=== PATIENT | male | born 1955 | race American Indian/Alaskan Native ===

== ENCOUNTER 2016-09-05 20:47 | Emergency (ER) | payer MEDICARE, OTHER ==
[2016-09-05 22:50] LABS: Basophils % (Auto) 1.2 % (0.0-1.8); Eosinophils % (Auto) 1.1 % (0.0-4.3); Hematocrit 40.8 % (35.5-45.6); Hemoglobin 13.1 gm/dl (11.8-15.2); Mean Corpuscular HGB Conc 32 % (32-34); Mean Corpuscular Hemoglobin 26 pg (28-32); Mean Corpuscular Volume 81 fl (84-94); Platelet Count 179 K/mm3 (140-440); Red Blood Count 5.05 M/mm3 (3.65-5.03); Red Cell Distribution Width 14.7 % (13.2-15.2); White Blood Count 7.9 K/mm3 (4.5-11.0)
[2016-09-05 23:02] LABS: Anion Gap 19 mmol/L; BUN/Creatinine Ratio 19.09; Blood Urea Nitrogen 21 mg/dL (9-20); Calcium 9.1 mg/dL (8.4-10.2); Carbon Dioxide 25 mmol/L (22-30); Chloride 97.1 mmol/L (98-107); Glucose 112 mg/dL (75-100); INR 1.33 (0.87-1.13); Potassium 3.6 mmol/L (3.6-5.0); Sodium 137 mmol/L (137-145)
[2016-09-05 23:03] LABS: Partial Thromboplastin Time 38.1 Sec. (24.2-36.6)
[2016-09-06 04:57] VITALS: BP 149/92
--- NOTE | 2016-09-06 06:59 | Emergency Department Report ---
ED Shortness of Breath HPI - General Chief Complaint: Dyspnea/Respdistress Stated Complaint: PRODUCTIVE COUGH/FLU SX/EDDIE Time Seen by Provider: 09/06/16 06:43 Source: patient Mode of arrival: Ambulatory Limitations: No Limitations - History of Present Illness MD Complaint: shortness of breath, cough -: Gradual, days(s) (1) Radiation: other Severity: mild Pain Scale: 2 Quality: dull Consistency: intermittent Improves With: nothing Worsens With: nothing Known History Of: other (bronchitis) Context: recent illness Associated Symptoms: cough, sputum production Treatments Prior to Arrival: none - Related Data Home Oxygen Therapy: No Home Medications Medication Instructions Recorded Confirmed Last Taken Carvedilol [Coreg] 25 mg PO BID 10/12/12 01/12/14 01/11/14 Esomeprazole Magnesium [NexIUM] 40 mg PO QDAY 10/12/12 01/12/14 01/11/14 Furosemide [Lasix TAB] 20 mg PO BID 10/12/12 01/12/14 01/11/14 Losartan [Cozaar] 100 mg PO QDAY 10/12/12 01/12/14 01/11/14 Simvastatin 20 mg PO QHS 10/12/12 01/12/14 01/11/14 Warfarin [Coumadin] 5 mg PO QDAY 10/12/12 01/12/14 01/11/14 amLODIPine [Norvasc] 10 mg PO DAILY 10/12/12 01/12/14 01/11/14 Previous Rx's Medication Instructions Recorded Last Taken Type Aspirin [Aspirin BABY CHEW TAB] 81 mg PO QDAY #30 tab.chew 10/15/12 01/11/14 Rx Isosorbide Mononitrate [Imdur] 30 mg PO QDAY #30 tab.er.24h 10/15/12 01/11/14 Rx Albuterol Sulfate [Proventil HFA] 1 - 2 puff IH Q4H PRN #1 hfa.aer.ad 01/12/14 Unknown Rx Aspirin [Aspirin BABY CHEW TAB] 81 mg PO ONCE #100 tab.chew 01/12/14 Unknown Rx Azithromycin [Zithromax Z-SUGEY] 250 mg PO DAILY #6 tablet 01/12/14 Unknown Rx predniSONE [Deltasone] 20 mg PO BID #8 tablet 01/12/14 Unknown Rx Azithromycin [Zithromax TAB] 500 mg PO QDAY #3 tablet 12/27/14 Unknown Rx Benzonatate [Tessalon Perles] 100 mg PO Q8HR #20 capsule 12/27/14 Unknown Rx Azithromycin [Zithromax Z-SUGEY] 250 mg PO DAILY #6 tab 02/28/15 Unknown Rx Benzonatate [Tessalon Perles] 100 mg PO Q8HR #15 capsule 02/28/15 Unknown Rx Amoxicillin [Trimox CAP] 500 mg PO Q8H #20 capsule 07/16/15 Unknown Rx Clindamycin [Clindamycin CAP] 300 mg PO Q8H #20 cap 07/19/15 Unknown Rx Azithromycin [Zithromax Z-SUGEY] 250 mg PO DAILY #6 tablet 09/06/16 Unknown Rx Benzonatate [Tessalon Perles] 100 mg PO Q8HR PRN #20 capsule 09/06/16 Unknown Rx Allergies Allergy/AdvReac Type Severity Reaction Status Date / Time shellfish derived Allergy Itching Verified 01/12/14 11:16 tomato [Tomato] Allergy Itching Verified 01/12/14 11:16 acetaminophen AdvReac Unknown Verified 01/12/14 11:16 [From Tylenol Cold Head Congestion] dextromethorphan HBr AdvReac Unknown Verified 01/12/14 11:16 [From Tylenol Cold Head Congestion] guaifenesin AdvReac Unknown Verified 01/12/14 11:16 [From Tylenol Cold Head Congestion] phenylephrine HCl AdvReac Unknown Verified 01/12/14 11:16 [From Tylenol Cold Head Congestion] ED Review of Systems ROS: Stated complaint: PRODUCTIVE COUGH/FLU SX/EDDIE Other details as noted in HPI Comment: All other systems reviewed and negative Respiratory: cough Cardiovascular: chest pain ED Past Medical Hx - Past Medical History Previous Medical History?: Yes Hx Hypertension: Yes Hx Heart Attack/AMI: Yes Hx Congestive Heart Failure: Yes Hx Diabetes: No Hx Asthma: No Hx COPD: No Hx HIV: No Additional medical history: ATRIAL Fib, takes Xarelto - Surgical History Hx Appendectomy: Yes - Social History Smoking Status: Former Smoker - Medications Home Medications: Home Medications Medication Instructions Recorded Confirmed Last Taken Type Carvedilol [Coreg] 25 mg PO BID 10/12/12 01/12/14 01/11/14 History Esomeprazole Magnesium [NexIUM] 40 mg PO QDAY 10/12/12 01/12/14 01/11/14 History Furosemide [Lasix TAB] 20 mg PO BID 10/12/12 01/12/14 01/11/14 History Losartan [Cozaar] 100 mg PO QDAY 10/12/12 01/12/14 01/11/14 History Simvastatin 20 mg PO QHS 10/12/12 01/12/14 01/11/14 History Warfarin [Coumadin] 5 mg PO QDAY 10/12/12 01/12/14 01/11/14 History amLODIPine [Norvasc] 10 mg PO DAILY 10/12/12 01/12/14 01/11/14 History Aspirin [Aspirin BABY CHEW TAB] 81 mg PO QDAY #30 tab.chew 10/15/12 01/12/1406/20 Rx Isosorbide Mononitrate [Imdur] 30 mg PO QDAY #30 tab.er.24h 10/15/12 01/12/14 Rx Albuterol Sulfate [Proventil HFA] 1 - 2 puff IH Q4H PRN #1 hfa.aer.ad 01/12/14 01/12/14 Unknown Rx Aspirin [Aspirin BABY CHEW TAB] 81 mg PO ONCE #100 tab.chew 01/12/14 01/12/14 Unknown Rx Azithromycin [Zithromax Z-SUGEY] 250 mg PO DAILY #6 tablet 01/12/14 Unknown Rx predniSONE [Deltasone] 20 mg PO BID #8 tablet 01/12/14 01/12/14 Unknown Rx Azithromycin [Zithromax TAB] 500 mg PO QDAY #3 tablet 12/27/14 Unknown Rx Benzonatate [Tessalon Perles] 100 mg PO Q8HR #20 capsule 12/27/14 Unknown Rx Azithromycin [Zithromax Z-SUGEY] 250 mg PO DAILY #6 tab 02/28/15 Unknown Rx Benzonatate [Tessalon Perles] 100 mg PO Q8HR #15 capsule 02/28/15 Unknown Rx Amoxicillin [Trimox CAP] 500 mg PO Q8H #20 capsule 07/16/15 Unknown Rx Clindamycin [Clindamycin CAP] 300 mg PO Q8H #20 cap 07/19/15 Unknown Rx Azithromycin [Zithromax Z-SUGEY] 250 mg PO DAILY #6 tablet 09/06/16 Unknown Rx Benzonatate [Tessalon Perles] 100 mg PO Q8HR PRN #20 capsule 09/06/16 Unknown Rx ED Physical Exam - General Limitations: No Limitations General appearance: alert, in no apparent distress - Head Head exam: Present: atraumatic - Eye Eye exam: Present: normal appearance, PERRL, EOMI - ENT ENT exam: Present: normal exam - Neck Neck exam: Present: normal inspection - Respiratory Respiratory exam: Present: normal lung sounds bilaterally - Cardiovascular Cardiovascular Exam: Present: regular rate, normal rhythm - GI/Abdominal GI/Abdominal exam: Present: soft - Extremities Exam Extremities exam: Present: normal inspection - Back Exam Back exam: Present: normal inspection - Neurological Exam Neurological exam: Present: alert, altered, oriented X3 - Skin Skin exam: Present: warm ED Course Vital Signs 09/05/16 09/06/16 09/06/16 21:39 04:41 04:46 Temperature 98.2 F Pulse Rate 73 39 L Respiratory 18 18 Rate Blood Pressure 152/96 149/92 O2 Sat by Pulse 98 99 99 Oximetry 09/06/16 09/06/16 09/06/16 04:48 04:50 04:52 Temperature Pulse Rate 39 L 42 L 53 L Respiratory 17 15 21 Rate Blood Pressure 149/92 149/92 149/92 O2 Sat by Pulse 99 99 99 Oximetry - Reevaluation(s) Reevaluation #1: 09/06/16 06:56 Feels better and wants to go home ED Medical Decision Making - Lab Data Result diagrams: 09/05/16 22:13 09/05/16 22:13 Critical care attestation.: If time is entered above; I have spent that time in minutes in the direct care of this critically ill patient, excluding procedure time. ED Disposition Clinical Impression: Acute bronchitis Disposition: DC-01 TO HOME OR SELFCARE Is pt being admited?: No Does the pt Need Aspirin: No Condition: Stable Instructions: Acute Bronchitis (ED) Prescriptions: Azithromycin [Zithromax Z-SUGEY] 250 mg PO DAILY #6 tablet Benzonatate [Tessalon Perles] 100 mg PO Q8HR PRN #20 capsule PRN Reason: Cough Referrals: PRIMARY CARE, [Primary Care Provider] - 3-5 Days
--- NOTE | 2016-09-06 07:36 | XRay Report ---
CHEST 2 VIEWS INDICATION: Productive cough for 4 days. COMPARISON: 07/19/2015 FINDINGS: PA and lateral chest radiographs again demonstrate mild cardiomegaly and increased bronchovascular markings centrally. Clear remainder lungs without pleural effusions or CHF. Mild degenerative spurring. CONCLUSION: Stable cardiomegaly, as described. Thank you for the opportunity to participate in this patient's care.
== END 2016-09-06 07:00 | disposition home or self-care (01) ==
LOC: ED 20:47
DX: J20.9 Acute bronchitis, unspecified (principal); I10 Essential (primary) hypertension; I25.2 Old myocardial infarction; I50.9 Heart failure, unspecified; Z87.891 Personal history of nicotine dependence; Z79.82 Long term (current) use of aspirin; Z91.013 Allergy to seafood; Z88.8 Allergy status to other drugs, medicaments and biological substances
CPT/HCPCS: 36415; 71020; 80048; 84484; 85025; 85610; 85730; 87400; 93005; 93010

== ENCOUNTER 2018-05-03 19:31 | Inpatient (IN) | payer MEDICARE ==
--- NOTE | 2018-05-03 20:19 | Emergency Department Report ---
Blank Doc - Documentation Documentation: This is a 62-year-old male that presents with SOB and chest pain. This initial assessment/diagnostic orders/clinical plan/treatment(s) is/are subject to change based on patient's health status, clinical progression and re- assessment by fellow clinical providers in the ED. Further treatment and workup at subsequent clinical providers discretion. Patient/guardians urged not to elope from the ED as their condition may be serious if not clinically assessed and managed. Initial orders include: 1- Patient sent to MAIN ED for further evaluation and treatment 2- labs 3- EKG 4- CXR
[2018-05-03 21:24] LABS: Basophils % (Auto) 0.3 % (0.0-1.8); Eosinophils # (Auto) 0.1 K/mm3 (0.0-0.4); Eosinophils % (Auto) 0.7 % (0.0-4.3); Hematocrit 42.2 % (35.5-45.6); Hemoglobin 13.8 gm/dl (11.8-15.2); Lymphocytes # (Auto) 2.3 K/mm3 (1.2-5.4); Lymphocytes % (Auto) 28.2 % (13.4-35.0); Mean Corpuscular HGB Conc 33 % (32-34); Mean Corpuscular Volume 85 fl (84-94); Monocytes # (Auto) 1.2 K/mm3 (0.0-0.8); Monocytes % (Auto) 15.2 % (0.0-7.3); Platelet Count 184 K/mm3 (140-440); Red Blood Count 4.99 M/mm3 (3.65-5.03); Red Cell Distribution Width 13.6 % (13.2-15.2)
[2018-05-03 21:32] LABS: INR 2.1 (0.87-1.13)
[2018-05-03 21:33] LABS: Partial Thromboplastin Time 38.3 Sec. (24.2-36.6)
[2018-05-03 21:49] LABS: Creatine Kinase MB 4.5 ng/mL (0.0-4.0)
[2018-05-03 21:50] LABS: Albumin 4.1 g/dL (3.9-5); Calcium 9.2 mg/dL (8.4-10.2)
--- NOTE | 2018-05-03 22:10 | XRay Report ---
PROCEDURE: XR CHEST ROUTINE 2V TECHNIQUE: PA and lateral chest radiographs were obtained. HISTORY: Dyspnea COMPARISONS: None. FINDINGS: Heart: Normal. Mediastinum/Vessels: Normal. Lungs/Pleural space: Normal. Bony thorax: No acute osseous abnormality. IMPRESSION: Normal examination. This document is electronically signed by Dk Browning MD., May 03 2018 10:08:47 PM ET
--- NOTE | 2018-05-04 00:01 | Emergency Department Report ---
ED General Adult HPI - General Chief complaint: Dyspnea/Respdistress Stated complaint: EDDIE Time Seen by Provider: 05/03/18 20:18 Source: patient, RN notes reviewed, old records reviewed Mode of arrival: Ambulatory Limitations: No Limitations - History of Present Illness Initial comments: This is a 62-year-old gentleman. Primary care Dr.: DR HAWKINS Cardiology: Emmanuel Past medical history: Atrial fibrillation, congestive heart failure, hypertension, reported history of myocardial infarction, abnormal stress test in 2012, at that time, cardiac catheterization was recommended, and the patient refused, declined. The patient presents to the emergency room today with complaints of inability to swallow for a few days, central chest pain which does not radiate to the back, arms or neck, no vomiting, no diaphoresis and shortness of breath. Patient st ates his shortness of breath "reminds me of my last heart attack." His chest pain is intermittent, and is occasionally associated with oral fluid intake. Patient reports difficulty with swallowing solids and liquids. He denies DVT, pulmonary embolus risk factors, and he endorses compliance with his systemic anticoagulation, XARELTO The chest pain does not radiate anywhere, it is intermittent, and is described as pressure, achy in nature, and the patient does not really know if it has any exacerbating or relieving factors. Shortness of breath is intermittent, painless, does not appear to have exacerbating or relieving factors. -: Gradual Location: chest Severity scale (0 -10): 7 Consistency: intermittent Improves with: none Worsens with: none - Related Data Home Medications Medication Instructions Recorded Confirmed Last Taken Carvedilol [Coreg] 25 mg PO BID 10/12/12 01/12/14 01/11/14 Esomeprazole Magnesium [NexIUM] 40 mg PO QDAY 10/12/12 01/12/14 01/11/14 Furosemide [Lasix TAB] 20 mg PO BID 10/12/12 01/12/14 01/11/14 Losartan [Cozaar] 100 mg PO QDAY 10/12/12 01/12/14 01/11/14 Simvastatin 20 mg PO QHS 10/12/12 01/12/14 01/11/14 Warfarin [Coumadin] 5 mg PO QDAY 10/12/12 01/12/14 01/11/14 amLODIPine [Norvasc] 10 mg PO DAILY 10/12/12 01/12/14 01/11/14 Previous Rx's Medication Instructions Recorded Last Taken Type Aspirin [Aspirin BABY CHEW TAB] 81 mg PO QDAY #30 tab.chew 10/15/12 01/11/14 Rx Isosorbide Mononitrate [Imdur] 30 mg PO QDAY #30 tab.er.24h 10/15/12 01/11/14 Rx Albuterol Sulfate [Proventil HFA] 1 - 2 puff IH Q4H PRN #1 hfa.aer.ad 01/12/14 Unknown Rx Aspirin [Aspirin BABY CHEW TAB] 81 mg PO ONCE #100 tab.chew 01/12/14 Unknown Rx Azithromycin [Zithromax Z-SUGEY] 250 mg PO DAILY #6 tablet 01/12/14 Unknown Rx predniSONE [Deltasone] 20 mg PO BID #8 tablet 01/12/14 Unknown Rx Azithromycin [Zithromax TAB] 500 mg PO QDAY #3 tablet 12/27/14 Unknown Rx Benzonatate [Tessalon Perles] 100 mg PO Q8HR #20 capsule 12/27/14 Unknown Rx Azithromycin [Zithromax Z-SUGEY] 250 mg PO DAILY #6 tab 02/28/15 Unknown Rx Benzonatate [Tessalon Perles] 100 mg PO Q8HR #15 capsule 02/28/15 Unknown Rx Amoxicillin [Trimox CAP] 500 mg PO Q8H #20 capsule 07/16/15 Unknown Rx Clindamycin [Clindamycin CAP] 300 mg PO Q8H #20 cap 07/19/15 Unknown Rx Azithromycin [Zithromax Z-SUGEY] 250 mg PO DAILY #6 tablet 09/06/16 Unknown Rx Benzonatate [Tessalon Perles] 100 mg PO Q8HR PRN #20 capsule 09/06/16 Unknown Rx Allergies Allergy/AdvReac Type Severity Reaction Status Date / Time shellfish derived Allergy Itching Verified 01/12/14 11:16 tomato [Tomato] Allergy Itching Verified 01/12/14 11:16 acetaminophen AdvReac Unknown Verified 01/12/14 11:16 [From Tylenol Cold Head Congestion] dextromethorphan HBr AdvReac Unknown Verified 01/12/14 11:16 [From Tylenol Cold Head Congestion] guaifenesin AdvReac Unknown Verified 01/12/14 11:16 [From Tylenol Cold Head Congestion] phenylephrine HCl AdvReac Unknown Verified 01/12/14 11:16 [From Tylenol Cold Head Congestion] ED Review of Systems ROS: Stated complaint: EDDIE Other details as noted in HPI Constitutional: malaise. denies: fever Eyes: denies: vision change ENT: denies: epistaxis Respiratory: shortness of breath Cardiovascular: chest pain Gastrointestinal: other (patient endorses dysphagia). denies: abdominal pain, nausea, vomiting Genitourinary: denies: dysuria Musculoskeletal: other (chronic lower extremity swelling) Skin: lesions (chronic lower extremity hyperpigmentation) Neurological: weakness Psychiatric: anxiety ED Past Medical Hx - Past Medical History Previous Medical History?: Yes Hx Hypertension: Yes Hx Heart Attack/AMI: Yes Hx Congestive Heart Failure: Yes Hx Diabetes: No Hx Asthma: No Hx COPD: No Hx HIV: No Additional medical history: ATRIAL Fib, takes Xarelto - Surgical History Past Surgical History?: Yes Hx Appendectomy: Yes - Social History Smoking Status: Never Smoker Substance Use Type: None - Medications Home Medications: Home Medications Medication Instructions Recorded Confirmed Last Taken Type Carvedilol [Coreg] 25 mg PO BID 10/12/12 01/12/14 01/11/14 History Esomeprazole Magnesium [NexIUM] 40 mg PO QDAY 10/12/12 01/12/14 01/11/14 History Furosemide [Lasix TAB] 20 mg PO BID 10/12/12 01/12/14 01/11/14 History Losartan [Cozaar] 100 mg PO QDAY 10/12/12 01/12/14 01/11/14 History Simvastatin 20 mg PO QHS 10/12/12 01/12/14 01/11/14 History Warfarin [Coumadin] 5 mg PO QDAY 10/12/12 01/12/14 01/11/14 History amLODIPine [Norvasc] 10 mg PO DAILY 10/12/12 01/12/14 01/11/14 History Aspirin [Aspirin BABY CHEW TAB] 81 mg PO QDAY #30 tab.chew 10/15/12 01/12/14 01/11/14 Rx Isosorbide Mononitrate [Imdur] 30 mg PO QDAY #30 tab.er.24h 10/15/12 01/12/14 01/11/14 Rx Albuterol Sulfate [Proventil HFA] 1 - 2 puff IH Q4H PRN #1 hfa.aer.ad 01/12/14 01/12/14 Unknown Rx Aspirin [Aspirin BABY CHEW TAB] 81 mg PO ONCE #100 tab.chew 01/12/14 01/12/14 Unknown Rx Azithromycin [Zithromax Z-SUGEY] 250 mg PO DAILY #6 tablet 01/12/14 Unknown Rx predniSONE [Deltasone] 20 mg PO BID #8 tablet 01/12/14 01/12/14 Unknown Rx Azithromycin [Zithromax TAB] 500 mg PO QDAY #3 tablet 12/27/14 Unknown Rx Benzonatate [Tessalon Perles] 100 mg PO Q8HR #20 capsule 12/27/14 Unknown Rx Azithromycin [Zithromax Z-SUGEY] 250 mg PO DAILY #6 tab 02/28/15 Unknown Rx Benzonatate [Tessalon Perles] 100 mg PO Q8HR #15 capsule 02/28/15 Unknown Rx Amoxicillin [Trimox CAP] 500 mg PO Q8H #20 capsule 07/16/15 Unknown Rx Clindamycin [Clindamycin CAP] 300 mg PO Q8H #20 cap 07/19/15 Unknown Rx Azithromycin [Zithromax Z-SUGEY] 250 mg PO DAILY #6 tablet 09/06/16 Unknown Rx Benzonatate [Tessalon Perles] 100 mg PO Q8HR PRN #20 capsule 09/06/16 Unknown Rx ED Physical Exam - General Limitations: No Limitations General appearance: alert, in no apparent distress - Head Head exam: Present: atraumatic, normocephalic - Eye Eye exam: Present: normal appearance, EOMI. Absent: nystagmus - ENT ENT exam: Present: normal exam, normal orophraynx, mucous membranes moist - Neck Neck exam: Present: normal inspection, full ROM. Absent: tenderness, meningismus - Respiratory Respiratory exam: Present: normal lung sounds bilaterally. Absent: respiratory distress - Cardiovascular Cardiovascular Exam: Present: bradycardia, irregular rhythm, normal heart sounds. Absent: systolic murmur, diastolic murmur, rubs, gallop - GI/Abdominal GI/Abdominal exam: Present: soft. Absent: distended, tenderness, guarding, rebound, rigid, pulsatile mass - Rectal Rectal exam: Present: deferred - Extremities Exam Extremities exam: Present: normal inspection, full ROM, pedal edema, other (2+ pulses noted in the bilateral upper, lower extremities. Compartments soft. No long bony tenderness. The pelvis is stable.). Absent: calf tenderness - Back Exam Back exam: Present: normal inspection, full ROM. Absent: tenderness, CVA tenderness (R), paraspinal tenderness, vertebral tenderness - Neurological Exam Neurological exam: Present: alert, oriented X3, normal gait, other (Extraocular movements intact. Tongue midline. No facial droop. Facial sensation intact to light touch in the V1, V2, V3 distribution bilaterally. 5 and 5 strength in 4 extremities.. Sensation is intact to light touch in 4 extremities.). Absent: motor sensory deficit - Psychiatric Psychiatric exam: Present: anxious - Skin Skin exam: Present: warm, dry, intact, normal color. Absent: rash ED Course Vital Signs 05/03/18 20:18 Temperature 97.7 F Pulse Rate 46 L Respiratory 20 Rate Blood Pressure 116/79 O2 Sat by Pulse 99 Oximetry ED Medical Decision Making - Lab Data Result diagrams: 05/03/18 20:36 05/03/18 20:36 Vital Signs 05/03/18 20:18 Temperature 97.7 F Pulse Rate 46 L Respiratory 20 Rate Blood Pressure 116/79 O2 Sat by Pulse 99 Oximetry Lab Results 05/03/18 05/03/18 05/03/18 Range/Units 20:36 20:36 20:36 WBC 8.2 (4.5-11.0) K/mm3 RBC 4.99 (3.65-5.03) M/mm3 Hgb 13.8 (11.8-15.2) gm/dl Hct 42.2 (35.5-45.6) % MCV 85 (84-94) fl MCH 28 (28-32) pg MCHC 33 (32-34) % RDW 13.6 (13.2-15.2) % Plt Count 184 (140-440) K/mm3 Lymph % (Auto) 28.2 (13.4-35.0) % Anderson % (Auto) 15.2 H (0.0-7.3) % Eos % (Auto) 0.7 (0.0-4.3) % Baso % (Auto) 0.3 (0.0-1.8) % Lymph # 2.3 (1.2-5.4) K/mm3 Anderson # 1.2 H (0.0-0.8) K/mm3 Eos # 0.1 (0.0-0.4) K/mm3 Baso # 0.0 (0.0-0.1) K/mm3 Seg Neutrophils % 55.6 (40.0-70.0) % Seg Neutrophils # 4.6 (1.8-7.7) K/mm3 PT 25.0 H (12.2-14.9) Sec. INR 2.10 H (0.87-1.13) APTT 38.3 H (24.2-36.6) Sec. Sodium 132 L (137-145) mmol/L Potassium 3.3 L (3.6-5.0) mmol/L Chloride 91.2 L (98-107) mmol/L Carbon Dioxide 25 (22-30) mmol/L Anion Gap 19 mmol/L BUN 24 H (9-20) mg/dL Creatinine 1.7 H (0.8-1.5) mg/dL Estimated GFR 50 ml/min BUN/Creatinine Ratio 14 % Glucose 123 H (75-100) mg/dL Calcium 9.2 (8.4-10.2) mg/dL Total Bilirubin 0.90 (0.1-1.2) mg/dL AST 23 (5-40) units/L ALT 23 (7-56) units/L Alkaline Phosphatase 67 (35-129) units/L Total Creatine Kinase 216 H (55-170) units/L CK-MB (CK-2) 4.5 H (0.0-4.0) ng/mL CK-MB (CK-2) Rel Index 2.0 (0-4) Troponin T 0.015 (0.00-0.029) ng/mL Total Protein 7.8 (6.3-8.2) g/dL Albumin 4.1 (3.9-5) g/dL Albumin/Globulin Ratio 1.1 % - EKG Data Interpretation: unchanged when compared t 05/04/18 00:48 EKG shows atrial flutter, 54 bpm, variable rate, premature ventricular contractions, left axis deviation, abnormal EKG, not having chest pain, not consistent with ST elevation myocardial infarction. - Radiology Data Radiology results: report reviewed, image reviewed X-ray the chest is negative for acute disease. - Medical Decision Making Differential diagnosis, including but not limited to: Dysphagia, GERD, gastritis, hiatal hernia, acute coronary syndrome Assessment and plan: 62-year-old gentleman with 2 complaints. Complaint #1; dysphagia. Patient able to tolerate liquids, although with difficulty. Based off of the history and physical, patient most likely has new- onset dysphagia, either due to esophageal dysmotility, stricture, or other etiology. He is able to tolerate liquid feeds. However, because of his second complaints, complaint #2, chest pain, in which he endorses shortness of breath or reminds of his previous heart attack, he will be admitted to the medical service for cardiac risk stratification, as I find this patient to be moderate risk by the heart score. The patient had an abnormal stress test at this hospital a few years ago, and at that time, I refused cardiac catheterization. The patient cannot recall if he has been catheterized or stressed within the past year. I have recommended admission to the patient, and he is amenable to this plan of care. No pulmonary embolus or DVT risk factors, low risk by well's criteria, INR greater than 2, and he endorses compliance with systemic anticoagulation. Dr. Nava of the hospital service will admit the patient to the medical service for cardiac risk stratification. Discussed with gastroenterology, Dr. Thibodeaux, who agrees to follow in consultation for dysphagia. Critical care attestation.: If time is entered above; I have spent that time in minutes in the direct care of this critically ill patient, excluding procedure time. ED Disposition Clinical Impression: Dysphagia, Chest pain, Dyspnea Disposition: OP ADMIT IP TO THIS HOSP Is pt being admited?: Yes Does the pt Need Aspirin: Yes Condition: Stable Instructions: Chest Pain (ED) Referrals: PRINCE HENDERSON MD [Primary Care Provider] - 3-5 Days
[2018-05-04] MEDS ORDERED: BABY ASPIRIN PO ONE (00:51)
--- NOTE | 2018-05-04 01:06 | History and Physical Report ---
History of Present Illness Date of examination: 05/04/18 History of present illness: 62 -year-old man with a history of hypertension, CHF, A. fib comes to the emergency room with complaints of chest pain. Pain is in the epigastric area which he describes as someone hitting him in the chest, intermittent between 10 minutes, intensity 5/10, cannot identify exacerbating factors. Admits shortness of breath. No nausea vomiting, diaphoresis or palpitation. He had a stress test one month ago at [facility], he was told that he needs to follow-up with cardiology at [facility] for stent placement, he has not done so as yet. Also complaining of dysphagia to solid and liquid Review of systems Constitutional: no weight loss, chills, fever Ears, eyes, nose, mouth and throat: no nasal congestion, no nasal discharge, no sinus pressure, no vision change, no red eye. Neck: No neck pain or rigidity. Cardiovascular: no palpitations, +chest pain Respiratory: no cough, +shortness of breath Gastrointestinal: no hematochezia, abdominal pain Genitourinary : no frequency , no hematuria Musculoskeletal: no joint swelling or muscle ache Integumentary: no rash, no pruritis Neurological: no parathesias, no focal weakness Endocrine: no cold or heat intolerance, no polyuria or polydipsia Hematologic/Lymphatic: no easy bruising, no easy bleeding, no gland swelling Allergic/Immunologic: no urticaria, no angioedema. PAST MEDICAL HISTORY:hypertension, CHF, A. fib PAST SURGICAL HISTORY: Appendectomy SOCIAL HISTORY: Denies alcohol, drugs, tobacco FAMILY HISTORY: Hypertension Medications and Allergies Allergies Allergy/AdvReac Type Severity Reaction Status Date / Time shellfish derived Allergy Itching Verified 01/12/14 11:16 tomato [Tomato] Allergy Itching Verified 01/12/14 11:16 acetaminophen AdvReac Unknown Verified 01/12/14 11:16 [From Tylenol Cold Head Congestion] dextromethorphan HBr AdvReac Unknown Verified 01/12/14 11:16 [From Tylenol Cold Head Congestion] guaifenesin AdvReac Unknown Verified 01/12/14 11:16 [From Tylenol Cold Head Congestion] phenylephrine HCl AdvReac Unknown Verified 01/12/14 11:16 [From Tylenol Cold Head Congestion] Home Medications Medication Instructions Recorded Confirmed Last Taken Type Carvedilol [Coreg] 25 mg PO Q12HRT 09/05/13 03/28/19 03/26/19 History Esomeprazole Magnesium [NexIUM] 40 mg PO QDAY 10/12/12 05/04/18 05/04/18 05:25 History Furosemide [Lasix TAB] 80 mg PO DAILY 10/12/12 05/04/18 05/02/18 History Losartan [Cozaar] 100 mg PO QDAY 10/12/12 01/12/14 01/11/14 History Simvastatin 20 mg PO QHS 10/12/12 01/12/14 01/11/14 History Warfarin [Coumadin] 5 mg PO QDAY 10/12/12 01/12/14 01/11/14 History amLODIPine [Norvasc] 10 mg PO DAILY 10/12/12 01/12/14 01/11/14 History Aspirin [Aspirin BABY CHEW TAB] 81 mg PO QDAY #30 tab.chew 10/15/12 01/12/14 1 03/14/13 Rx Isosorbide Mononitrate [Imdur] 30 mg PO QDAY #30 tab.er.24h 10/15/12 01/12/14 01/11/14 Rx Albuterol Sulfate [Proventil HFA] 1 - 2 puff IH Q4H PRN #1 hfa.aer.ad 01/12/14 01/12/14 Unknown Rx Aspirin [Aspirin BABY CHEW TAB] 81 mg PO ONCE #100 tab.chew 01/12/14 01/12/14 Unknown Rx Azithromycin [Zithromax Z-SUGEY] 250 mg PO DAILY #6 tablet 01/12/14 Unknown Rx predniSONE [Deltasone] 20 mg PO BID #8 tablet 01/12/14 01/12/14 Unknown Rx Azithromycin [Zithromax TAB] 500 mg PO QDAY #3 tablet 12/27/14 Unknown Rx Benzonatate [Tessalon Perles] 100 mg PO Q8HR #20 capsule 12/27/14 Unknown Rx Azithromycin [Zithromax Z-SUGEY] 250 mg PO DAILY #6 tab 02/28/15 Unknown Rx Benzonatate [Tessalon Perles] 100 mg PO Q8HR #15 capsule 02/28/15 Unknown Rx Amoxicillin [Trimox CAP] 500 mg PO Q8H #20 capsule 07/16/15 Unknown Rx Clindamycin [Clindamycin CAP] 300 mg PO Q8H #20 cap 07/19/15 Unknown Rx Azithromycin [Zithromax Z-SUGEY] 250 mg PO DAILY #6 tablet 09/06/16 Unknown Rx Benzonatate [Tessalon Perles] 100 mg PO Q8HR PRN #20 capsule 09/06/16 Unknown Rx VENTOLIN Inhaler(NF) 90 mcg PRN 05/04/18 Unknown History Xarelto 20 mg DAILY 05/04/18 05/04/18 05/02/18 History metFORMIN 1,000 mg DAILY 05/04/18 05/04/18 05/04/18 05:33 History Exam - Physical Exam Narrative exam: General Apperance: The patient lying in bed, breathing comfortable HEENT: Normocephalic, atraumatic. Pupils equally round and reactive to light, EOMI, no sclericterus or JVD or thyromegaly or nodule. , no carotid bruit, mucous membranes moist, no exudate or erythema Heart: S1-S2, regular is rhythm Lungs: Clear to auscultation bilaterally, breathing comfortable Abdomen: Positive bowel sounds, soft, nontender, nondistended, no organomegaly Extremities: No edema cyanosis clubbing Skin: no rash, nodule, warm and dry Neuro: cranial nerves 2-12 intact, speech is fluent, motor/sensory intact - Constitutional Vitals: Temp Pulse Resp BP Pulse Ox 97.7 F 46 L 20 116/79 99 05/03/18 20:18 05/03/18 20:18 05/03/18 20:18 05/03/18 20:18 05/03/18 20:18 Results - Labs CBC & Chem 7: 05/04/18 05:16 05/04/18 05:16 Labs: Abnormal lab results 05/03/18 05/03/18 05/03/18 Range/Units 20:36 20:36 20:36 [place] % (Auto) 15.2 H (0.0-7.3) % [place] # 1.2 H (0.0-0.8) K/mm3 PT 25.0 H (12.2-14.9) Sec. INR 2.10 H (0.87-1.13) APTT 38.3 H (24.2-36.6) Sec. Sodium 132 L (137-145) mmol/L Potassium 3.3 L (3.6-5.0) mmol/L Chloride 91.2 L (98-107) mmol/L BUN 24 H (9-20) mg/dL Creatinine 1.7 H (0.8-1.5) mg/dL Glucose 123 H (75-100) mg/dL Total Creatine Kinase 216 H (55-170) units/L CK-MB (CK-2) 4.5 H (0.0-4.0) ng/mL - Imaging and Cardiology EKG: image reviewed Chest x-ray: report reviewed Assessment and Plan Assessment Dysphagia to solid and liquid Unstable angina CHF, stable A. fib Hypertension Coronary artery disease Plan Admit to medicine Check cardiac enzymes, consult GI, cardiology Continue outpatient medications, IV morphine, DVT prophylaxis Addendum Follow-up medication reconciliation
[2018-05-04 02:50] LABS: Bilirubin,Urine NEG (Negative); Blood,Urine NEG (Negative); Color,Urine Yellow (Yellow); Hyaline Casts,Urine 25 /LPF; Mucus,Urine FEW /HPF; Protein,Urine <15 mg/dL mg/dL (Negative); Urobilinogen,Urine < 2.0 mg/dL (<2.0); WBC,Urine < 1.0 /HPF (0.0-6.0)
[2018-05-04] MEDS ORDERED: MORPHINE IV PRN (02:59)
[2018-05-04] MEDS ORDERED: ZOFRAN IV PRN (02:59)
[2018-05-04] MEDS ORDERED: SODIUM CHLORIDE FLUSH SYRINGE 10 ML IV PRN (02:59)
[2018-05-04 06:15] LABS: Basophils % (Auto) 0.2 % (0.0-1.8); Eosinophils % (Auto) 0.6 % (0.0-4.3); Hematocrit 40.4 % (35.5-45.6); Hemoglobin 13.4 gm/dl (11.8-15.2); Lymphocytes # (Auto) 2.3 K/mm3 (1.2-5.4); Lymphocytes % (Auto) 32.9 % (13.4-35.0); Mean Corpuscular HGB Conc 33 % (32-34); Mean Corpuscular Volume 84 fl (84-94); Monocytes % (Auto) 14.5 % (0.0-7.3); Platelet Count 171 K/mm3 (140-440); Red Cell Distribution Width 13.6 % (13.2-15.2)
[2018-05-04 06:34] LABS: Calcium 9.1 mg/dL (8.4-10.2)
[2018-05-04 06:37] LABS: Creatine Kinase MB 4.7 ng/mL (0.0-4.0)
[2018-05-04 09:53] LABS: Creatine Kinase MB 4.8 ng/mL (0.0-4.0)
--- NOTE | 2018-05-04 10:12 | Gastroenterology Consultation ---
History of Present Illness - Reason for Consult Consult date: 05/04/18 dysphagia Requesting physician: CHINA RODRIGUEZ - History of Present Illness Patient is a 62 y/o male with PMH of HTN, CHF, NM, DM, and Afib (on Xarelto) who presented to ED with c/o CP. Per chart review, stress test was done 1 month ago at [facility] with recommendations for f/u cardiac cath with possible stent placement, however patient has yet to follow up. Cardiology consult pending. He also c/o difficulty swallowing both solids and liquids to which GI has been consulted. This morning patient was resting in bed w/o acute distress and CP improved. He reports dysphagia x ~3 years to solids and liquids that has progressively worsened over the past 2 days. Admits to some recent wt loss associated with starting a new medication for his diabetes. Denies fever, SOB, abd pain, N/V, odynophagia, signs of bleeding, or LGI symptoms. Has a hx of GERD and takes a daily PPI (nexium) at home. No prior hx of esophageal stricture or previous EGD. No known Fhx of GI cancers. Past History Past Medical History: other (as per HPI) Past Surgical History: appendectomy Social history: denies: smoking, alcohol abuse Family history: hypertension Medications and Allergies Allergies Allergy/AdvReac Type Severity Reaction Status Date / Time shellfish derived Allergy Itching Verified 01/12/14 11:16 tomato [Tomato] Allergy Itching Verified 01/12/14 11:16 acetaminophen AdvReac Unknown Verified 01/12/14 11:16 [From Tylenol Cold Head Congestion] dextromethorphan HBr AdvReac Unknown Verified 01/12/14 11:16 [From Tylenol Cold Head Congestion] guaifenesin AdvReac Unknown Verified 01/12/14 11:16 [From Tylenol Cold Head Congestion] phenylephrine HCl AdvReac Unknown Verified 01/12/14 11:16 [From Tylenol Cold Head Congestion] Home Medications Medication Instructions Recorded Confirmed Last Taken Type Carvedilol [Coreg] 25 mg PO Q12HRT 10/12/12 05/04/18 05/02/18 History Esomeprazole Magnesium [NexIUM] 40 mg PO QDAY 10/12/12 05/04/18 05/04/18 05:25 History Furosemide [Lasix TAB] 80 mg PO DAILY 10/12/12 05/04/18 05/02/18 History Losartan [Cozaar] 100 mg PO QDAY 10/12/12 01/12/14 01/11/14 History Simvastatin 20 mg PO QHS 10/12/12 01/12/14 01/11/14 History Warfarin [Coumadin] 5 mg PO QDAY 10/12/12 01/12/14 01/11/14 History amLODIPine [Norvasc] 10 mg PO DAILY 10/12/12 01/12/14 01/11/14 History Aspirin [Aspirin BABY CHEW TAB] 81 mg PO QDAY #30 tab.chew 10/15/12 01/12/14 01/11/14 Rx Isosorbide Mononitrate [Imdur] 30 mg PO QDAY #30 tab.er.24h 10/15/12 01/12/14 01/11/14 Rx Albuterol Sulfate [Proventil HFA] 1 - 2 puff IH Q4H PRN #1 hfa.aer.ad 01/12/14 01/12/14 Unknown Rx Aspirin [Aspirin BABY CHEW TAB] 81 mg PO ONCE #100 tab.chew 01/12/14 01/12/14 Unknown Rx Azithromycin [Zithromax Z-SUGEY] 250 mg PO DAILY #6 tablet 01/12/14 Unknown Rx predniSONE [Deltasone] 20 mg PO BID #8 tablet 01/12/14 01/12/14 Unknown Rx Azithromycin [Zithromax TAB] 500 mg PO QDAY #3 tablet 12/27/14 Unknown Rx Benzonatate [Tessalon Perles] 100 mg PO Q8HR #20 capsule 12/27/14 Unknown Rx Azithromycin [Zithromax Z-SUGEY] 250 mg PO DAILY #6 tab 02/28/15 Unknown Rx Benzonatate [Tessalon Perles] 100 mg PO Q8HR #15 capsule 02/28/15 Unknown Rx Amoxicillin [Trimox CAP] 500 mg PO Q8H #20 capsule 07/16/15 Unknown Rx Clindamycin [Clindamycin CAP] 300 mg PO Q8H #20 cap 07/19/15 Unknown Rx Azithromycin [Zithromax Z-SUGEY] 250 mg PO DAILY #6 tablet 09/06/16 Unknown Rx Benzonatate [Tessalon Perles] 100 mg PO Q8HR PRN #20 capsule 09/06/16 Unknown Rx VENTOLIN Inhaler(NF) 90 mcg PRN 05/04/18 Unknown History Xarelto 20 mg DAILY 05/04/18 05/04/18 05/02/18 History metFORMIN 1,000 mg DAILY 05/04/18 05/04/18 05/04/18 05:33 History Active Meds: Active Medications Enoxaparin Sodium (Lovenox) 40 mg SUB-Q QDAY@1000 SHAMAR Morphine Sulfate (Morphine) 2 mg IV Q4H PRN PRN Reason: Pain, Moderate (4-6) Ondansetron HCl (Zofran) 4 mg IV Q4H PRN PRN Reason: Nausea And Vomiting Sodium Chloride (Sodium Chloride Flush Syringe 10 Ml) 10 ml IV BID SHAMAR Sodium Chloride (Sodium Chloride Flush Syringe 10 Ml) 10 ml IV PRN PRN PRN Reason: LINE FLUSH medications reviewed/updated as required Review of Systems - Review of Systems All systems: negative Cardiovascular: chest pain Gastrointestinal: other (dysphagia) Exam - Constitutional Vital Signs: Temp Pulse Resp BP Pulse Ox 97.9 F 39 L 20 131/72 100 05/04/18 07:43 05/04/18 07:43 05/04/18 07:43 05/04/18 07:43 05/04/18 07:43 General appearance: no acute distress - EENT Eyes: PERRL, EOM intact ENT: hearing intact - Respiratory Respiratory: bilateral: CTA - Cardiovascular Rhythm: other (bradycardia) - Gastrointestinal General gastrointestinal: Present: soft, non-tender, non-distended, normal bowel sounds - Neurologic Neurological: alert and oriented x3 - Labs CBC & Chem 7: 05/04/18 05:16 05/04/18 05:16 Lab Results: Laboratory Results - last 24 hr 05/03/18 05/03/18 05/03/18 02:22 20:36 20:36 WBC 8.2 RBC 4.99 Hgb 13.8 Hct 42.2 MCV 85 MCH 28 MCHC 33 RDW 13.6 Plt Count 184 Lymph % (Auto) 28.2 [place] % (Auto) 15.2 H Eos % (Auto) 0.7 Baso % (Auto) 0.3 Lymph # 2.3 [place] # 1.2 H Eos # 0.1 Baso # 0.0 Seg Neutrophils % 55.6 Seg Neutrophils # 4.6 PT 25.0 H INR 2.10 H APTT 38.3 H Sodium Potassium Chloride Carbon Dioxide Anion Gap BUN Creatinine Estimated GFR BUN/Creatinine Ratio Glucose Calcium Total Bilirubin AST ALT Alkaline Phosphatase Total Creatine Kinase CK-MB (CK-2) CK-MB (CK-2) Rel Index Troponin T Total Protein Albumin Albumin/Globulin Ratio Urine Color Yellow Urine Turbidity Clear Urine pH 5.0 Ur Specific [place] 1.008 Urine Protein <15 mg/dl Urine Glucose (UA) Neg Urine Ketones Neg Urine Blood Neg Urine Nitrite Neg Urine Bilirubin Neg Urine Urobilinogen < 2.0 Ur Leukocyte Esterase Neg Urine WBC (Auto) < 1.0 Urine RBC (Auto) 1.0 U Epithel Cells (Auto) < 1.0 Hyaline Casts 25 Urine Mucus Few 05/03/18 05/04/18 05/04/18 20:36 02:42 05:16 WBC RBC Hgb Hct MCV MCH MCHC RDW Plt Count Lymph % (Auto) [place] % (Auto) Eos % (Auto) Baso % (Auto) Lymph # [place] # Eos # Baso # Seg Neutrophils % Seg Neutrophils # PT INR APTT Sodium 132 L Potassium 3.3 L Chloride 91.2 L Carbon Dioxide 25 Anion Gap 19 BUN 24 H Creatinine 1.7 H Estimated GFR 50 BUN/Creatinine Ratio 14 Glucose 123 H Calcium 9.2 Total Bilirubin 0.90 AST 23 ALT 23 Alkaline Phosphatase 67 Total Creatine Kinase 216 H 180 H CK-MB (CK-2) 4.5 H 4.7 H CK-MB (CK-2) Rel Index 2.0 2.6 Troponin T 0.015 0.015 0.010 Total Protein 7.8 Albumin 4.1 Albumin/Globulin Ratio 1.1 Urine Color Urine Turbidity Urine pH Ur Specific [place] Urine Protein Urine Glucose (UA) Urine Ketones Urine Blood Urine Nitrite Urine Bilirubin Urine Urobilinogen Ur Leukocyte Esterase Urine WBC (Auto) Urine RBC (Auto) U Epithel Cells (Auto) Hyaline Casts Urine Mucus 05/04/18 05/04/18 05/04/18 05:16 05:16 08:44 WBC 6.9 RBC 4.80 Hgb 13.4 Hct 40.4 MCV 84 MCH 28 MCHC 33 RDW 13.6 Plt Count 171 Lymph % (Auto) 32.9 [place] % (Auto) 14.5 H Eos % (Auto) 0.6 Baso % (Auto) 0.2 Lymph # 2.3 [place] # 1.0 H Eos # 0.0 Baso # 0.0 Seg Neutrophils % 51.8 Seg Neutrophils # 3.6 PT INR APTT Sodium 136 L Potassium 3.1 L Chloride 93.6 L Carbon Dioxide 27 Anion Gap 19 BUN 24 H Creatinine 1.5 Estimated GFR 57 BUN/Creatinine Ratio 16 Glucose 138 H Calcium 9.1 Total Bilirubin AST ALT Alkaline Phosphatase Total Creatine Kinase CK-MB (CK-2) 4.8 H CK-MB (CK-2) Rel Index Troponin T 0.014 Total Protein Albumin Albumin/Globulin Ratio Urine Color Urine Turbidity Urine pH Ur Specific [place] Urine Protein Urine Glucose (UA) Urine Ketones Urine Blood Urine Nitrite Urine Bilirubin Urine Urobilinogen Ur Leukocyte Esterase Urine WBC (Auto) Urine RBC (Auto) U Epithel Cells (Auto) Hyaline Casts Urine Mucus Assessment and Plan 1.dysphagia 2.H/o GERD -patient reports difficulty swallowing solids and liquids for ~3yrs with symptoms progressively worsening over the past 2 days -etiology-possible stricture vs other -will order esophagram from further evaluation -consider EGD based on above results (will need cardiac clearance) -resume daily PPI -continue supportive care -will follow 3.CP -cardiology consult pending 4.H/o NM (abnormal stress 1 month ago at [facility] with cardiac cath recommended) 5.CHF 6.Afib (on xarelto) 7.HTN
--- NOTE | 2018-05-04 10:55 | Event Note ---
Date: 05/04/18 Patient presents with chest pain and dysphagia. I have seen and examined him. To be evaluated by cardiology and GI Physician.
[2018-05-04] MEDS ORDERED: PROTONIX IV SCH (11:00)
--- NOTE | 2018-05-04 13:20 | Event Note ---
Date: 05/04/18 Cardiology consultation dvei. Agustina PEDROZA NP / DR. Mitch GOLDSMITH
--- NOTE | 2018-05-04 14:02 | Fluoroscopy Report ---
ESOPHAGRAM History: Dysphagia Findings: 69 fluoroscopic images were captured during this exam. Deglutition is normal. No evidence for aspiration. The esophagus is normal caliber and mucosal pattern throughout. No evidence for mass, obstruction, ring or web. There was delayed emptying of the esophagus throughout this exam with occasional tertiary contractions. No hiatal hernia or reflux was witnessed. Impression: Esophageal dysmotility. No esophageal lesion is identified.
[2018-05-04] MEDS: SODIUM CHLORIDE FLUSH SYRINGE 10 ML IV SCH ×2 (14:44→21:37)
[2018-05-04] MEDS: KCL 10MEQ/100ML 10 MEQ/100 ML BAG IV SCH ×2 (14:45→16:18)
[2018-05-04] MEDS: LOVENOX SUB-Q SCH (14:45)
[2018-05-04] MEDS ORDERED: NACL 0.9% 500 ML 500 ML IV ONE (15:00)
--- NOTE | 2018-05-04 20:16 | Consultation ---
REFERRING PHYSICIAN: Hospitalist Service. REASON FOR CONSULTATION: Advice and opinion regarding AFib/chest pain. HISTORY OF PRESENT ILLNESS: The patient is a pleasant 62-year-old gentleman with a history of hypertension, atrial fibrillation, CHF, who comes in with complaints of dysphagia; says he could not eat for the last couple of days, some notation of chest pain, but denies chest pain at this time; occasional shortness of breath, no shortness of breath at this time. No orthopnea or PND. Appears comfortable, just more concerned about his inability to swallow. No abdominal pain, hematochezia, melena, or hemoptysis. No fevers or chills. No blurred vision. PAST MEDICAL HISTORY: As aforementioned. PAST SURGICAL HISTORY: Appendectomy. SOCIAL HISTORY: Nonsmoker, nondrinker. ALLERGIES: SHELLFISH, TOMATO, TYLENOL, GUAIFENESIN, PHENYLEPHRINE. HOME MEDICATIONS: Inpatient and outpatient medications are reviewed. REVIEW OF SYSTEMS: As per HPI. PHYSICAL EXAMINATION: VITAL SIGNS: Tele reveals atrial fibrillation with slow ventricular response, heart rate in the 40s to 60s. His blood pressure is 130/70. He is afebrile. O2 sat is 100% on room air. GENERAL: This is a middle-aged -[place] male in no apparent distress, oriented x 3. HEENT: Sclerae icteric. NECK: Supple, no masses, no JVD. CHEST: Decreased breath sounds, bilateral bases. Overall, moderate air movement. CARDIOVASCULAR: Irregularly irregular with controlled ventricular response. ABDOMEN: Soft, nontender, nondistended. Normoactive bowel sounds in 4 quadrants. No mass or bruits. EXTREMITIES: No cyanosis, clubbing, or edema. Good peripheral pulses. SKIN: Warm, dry, and intact. No rashes. EKG shows atrial fibrillation with slow ventricular response. No pathological pauses noted on telemetry. LABORATORY DATA: CBC is essentially normal. INR is 2.1, the patient is noted to be on Xarelto at home. Cardiac enzymes are negative x 4. Chest x-ray is reviewed and unremarkable for pulmonary vascular congestion. ASSESSMENT AND PLAN: In summary, the patient is a pleasant 62-year-old -[place] male. Predominant complaint is dysphagia over the past several days. No cardiac symptoms at this point, we will recheck echocardiogram. Obtain records from [facility]. Continue supportive care. Thank you for this consultation. We will be happy to follow along with you. JOB# [id number] SBM/NTS
[2018-05-04] MEDS: PEPCID IV SCH (21:37)
[2018-05-05 06:27] LABS: Hematocrit 41.1 % (35.5-45.6); Hemoglobin 13.6 gm/dl (11.8-15.2); Mean Corpuscular HGB Conc 33 % (32-34); Mean Corpuscular Volume 85 fl (84-94); Platelet Count 172 K/mm3 (140-440); Red Blood Count 4.85 M/mm3 (3.65-5.03); Red Cell Distribution Width 13.9 % (13.2-15.2)
[2018-05-05 07:01] LABS: BUN/Creatinine Ratio 16; Blood Urea Nitrogen 23 mg/dL (9-20); Calcium 8.7 mg/dL (8.4-10.2); Hemolysis Index 11
[2018-05-05] MEDS: LOVENOX SUB-Q SCH (09:02)
[2018-05-05] MEDS: PEPCID IV SCH (09:02)
[2018-05-05] MEDS: SODIUM CHLORIDE FLUSH SYRINGE 10 ML IV SCH (09:03)
[2018-05-05] MEDS: POTASSIUM CHLORIDE FEEDTUBE SCH ×2 (09:03→17:34)
--- NOTE | 2018-05-05 11:41 | Gastroenterology Progress Note ---
Assessment and Plan 1.dysphagia 2.H/o GERD -esophagram yesterday showed esophageal motility but no evidence of mass, obstruction, or ring/web. -no plan for EGD at this time -clinically, patient was able to tolerate full liquids for breakfast this am w/o difficulty. Denies abd pain or N/V. -okay to advance diet to GI soft if tolerated -continue daily PPI -continue supportive care -patient is okay to be d/c per GI standpoint with f/u in clinic for further management -will sign off, please call if needed. 3.CP -cardiology following 4.H/o MN (abnormal stress 1 month ago at [facility] with cardiac cath recommended) 5.CHF 6.Afib (on xarelto) 7.HTN Subjective Date of service: 05/05/18 Principal diagnosis: dysphagia Interval history: No acute distress. Tolerated diet this am w/o difficulty. Denies abd pain or N/V. CP resolved. Objective - Constitutional Vitals: Temp Pulse Resp BP Pulse Ox 98.2 F 60 18 143/78 99 05/05/18 04:22 05/05/18 05:00 05/05/18 04:22 05/05/18 04:22 05/05/18 09:06 General appearance: no acute distress - Respiratory Respiratory: bilateral: CTA - Cardiovascular Rhythm: regular - Gastrointestinal General gastrointestinal: Present: soft, non-tender, non-distended, normal bowel sounds - Neurologic Neurological: alert and oriented x3 - Labs CBC & Chem 7: 05/05/18 05:25 05/05/18 05:25 Labs: Laboratory Results - last 24 hr 05/04/18 05/04/18 05/05/18 14:00 14:00 05:25 WBC 5.7 RBC 4.85 Hgb 13.6 Hct 41.1 MCV 85 MCH 28 MCHC 33 RDW 13.9 Plt Count 172 Sodium Potassium Chloride Carbon Dioxide Anion Gap BUN Creatinine Estimated GFR BUN/Creatinine Ratio Glucose Calcium TSH 0.416 Free T4 1.80 H 05/05/18 05:25 WBC RBC Hgb Hct MCV MCH MCHC RDW Plt Count Sodium 137 Potassium 3.5 L Chloride 97.0 L Carbon Dioxide 25 Anion Gap 19 BUN 23 H Creatinine 1.4 Estimated GFR > 60 BUN/Creatinine Ratio 16 Glucose 139 H Calcium 8.7 TSH Free T4
--- NOTE | 2018-05-05 12:09 | Progress Note ---
Assessment and Plan No significant cardiac symptoms today. Will review the echo once it is done. Continue current management. - Patient Problems (1) Chest pain Current Visit: Yes Status: Acute (2) Dysphagia Current Visit: Yes Status: Acute (3) Cardiomyopathy Current Visit: No Status: Chronic Subjective Date of service: 05/05/18 Principal diagnosis: dysphagia Interval history: Patient is feeling better today. Denies chest pain difficulty in breathing or palpitations. Objective Vital Signs Temp Pulse Pulse Resp BP Pulse Ox 05/05/18 09:06 99 05/05/18 05:00 60 05/05/18 04:22 98.2 F 41 L 18 143/78 100 05/04/18 23:15 98.1 F 39 L 16 135/67 97 05/04/18 22:00 40 L 05/04/18 21:00 30 L 05/04/18 19:25 98.1 F 62 16 148/85 100 05/04/18 13:17 97.6 F 50 L 17 126/90 100 - Physical Examination General: Appears Well HEENT: Positive: PERRL Neck: Positive: neck supple Cardiac: Positive: Regular Rate Lungs: Positive: clear to auscultation Neuro: Positive: Grossly Intact Abdomen: Positive: Soft Skin: Positive: Clear Extremities: Present: normal - Labs and Meds CBC 05/05/18 Range/Units 05:25 WBC 5.7 (4.5-11.0) K/mm3 RBC 4.85 (3.65-5.03) M/mm3 Hgb 13.6 (11.8-15.2) gm/dl Hct 41.1 (35.5-45.6) % Plt Count 172 (140-440) K/mm3 Comprehensive Metabolic Panel 05/05/18 Range/Units 05:25 Sodium 137 (137-145) mmol/L Potassium 3.5 L (3.6-5.0) mmol/L Chloride 97.0 L (98-107) mmol/L Carbon Dioxide 25 (22-30) mmol/L BUN 23 H (9-20) mg/dL Creatinine 1.4 (0.8-1.5) mg/dL Glucose 139 H (75-100) mg/dL Calcium 8.7 (8.4-10.2) mg/dL - Imaging and Cardiology EKG: image reviewed
[2018-05-05 14:56] VITALS: BP 127/64
--- NOTE | 2018-05-05 16:58 | Discharge Summary ---
Providers - Providers Date of Admission: 05/04/18 01:05 Date of discharge: 05/05/18 Attending physician: CHINA CORDERO 05/04/18 00:00 Consult to Physician [CONS] Urgent Comment: Dr. Ulloa spoke with Dr. Martinez @ [phone] Consulting Provider: CATHERINE CHOUDHARY Physician Instructions: Reason For Exam: dysphagia 05/04/18 03:01 Consult to Physician [CONS] Routine Comment: Consulting Provider: KASSIDY ORTIZ Physician Instructions: Reason For Exam: cp Primary care physician: PRINCE HENDERSON Hospitalization Condition: Fair Hospital course: Patient is 62-year-old with hypertension, atrial fibrillatioon and CHF. He presented with chest pain and difficulty swallowing. He was evaluated in the emergency department and admitted for further management. Patient was evaluated by Cardiology. Stress test was done was negative. He was also seen by GI physician. Barium swallow done revealing esophageal dysmotility with no lesions are seen. He was subsequently discharged home following day to follow with GI as an outpatient. Disposition: TO HOME OR SELFCARE - Discharge Diagnoses (1) Atrial fibrillation Status: Acute (2) Chest pain Status: Acute (3) Dysphagia Status: Acute (4) Cardiomyopathy Status: Chronic Comment: Nonischemic. Normal coronaries 2008 Core Measure Documentation - Palliative Care Palliative Care/ Comfort Measures: Not Applicable - Core Measures Any of the following diagnoses?: none Exam - Constitutional Vitals: Temp Pulse Resp BP Pulse Ox 98.1 F 79 18 127/64 98 05/05/18 13:04 05/05/18 13:03 05/05/18 13:04 05/05/18 13:04 05/05/18 13:03 Plan Activity: no restrictions Diet: low fat, low cholesterol, low salt, diabetic, other (GI soft diet) Additional Instructions: 1.Follow up with PCP in 1 week. 2.Follow up Cardiology at [facility] in 2-3 days. 3.Follow up with Dr. choudhary GI in 1 week Follow up with: PRINCE HENDERSON MD [Primary Care Provider] - 7 Days
[2018-05-05] MEDS ORDERED: NON-FORMULARY (Xarelto 20 MG) PO SCH (17:00)
[2018-05-05] MEDS ORDERED: POTASSIUM CHLORIDE FEEDTUBE SCH (18:00)
[2018-05-05] MEDS ORDERED: XARELTO PO SCH (18:00)
[2018-05-06] MEDS ORDERED: XARELTO PO SCH (08:00)
== END 2018-05-05 18:10 | disposition home or self-care (01) | DRG 392 ==
LOC: ED 19:31 → 4A 05-04 01:05
PROVIDERS: ADMIT Internal Medicine; ATTEND Internal Medicine
PROC: BD11YZZ Fluoroscopy of Esophagus using Other Contrast (ICD-10-PCS; principal; 2018-05-04)
DX: K22.4 Dyskinesia of esophagus (principal); I42.9 Cardiomyopathy, unspecified; I11.0 Hypertensive heart disease with heart failure; I50.9 Heart failure, unspecified; I25.10 Atherosclerotic heart disease of native coronary artery without angina pectoris; K21.0 Gastro-esophageal reflux disease with esophagitis; E11.9 Type 2 diabetes mellitus without complications; I48.91 Unspecified atrial fibrillation; Z90.49 Acquired absence of other specified parts of digestive tract; Z82.49 Family history of ischemic heart disease and other diseases of the circulatory system; Z91.013 Allergy to seafood; Z88.8 Allergy status to other drugs, medicaments and biological substances; Z91.018 Allergy to other foods; Z79.01 Long term (current) use of anticoagulants; Z79.899 Other long term (current) drug therapy; Z79.2 Long term (current) use of antibiotics; I25.2 Old myocardial infarction; Z79.84 Long term (current) use of oral hypoglycemic drugs
CPT/HCPCS: 36415; 71046; 74220; 80048; 80053; 81001; 82550; 82553; 84439; 84443; 84484; 85025; 85027; 85610; 85730; 93005; 93010; G0378; J1650; J3480

== ENCOUNTER 2018-07-22 03:29 | Emergency (ER) | payer MEDICARE ==
[2018-07-22 05:13] LABS: Basophils % (Auto) 0.4 % (0.0-1.8); Eosinophils # (Auto) 0.1 K/mm3 (0.0-0.4); Eosinophils % (Auto) 0.7 % (0.0-4.3); Hematocrit 36.7 % (35.5-45.6); Hemoglobin 12.2 gm/dl (11.8-15.2); Lymphocytes # (Auto) 1.7 K/mm3 (1.2-5.4); Lymphocytes % (Auto) 24.4 % (13.4-35.0); Mean Corpuscular HGB Conc 33 % (32-34); Mean Corpuscular Volume 86 fl (84-94); Monocytes # (Auto) 0.9 K/mm3 (0.0-0.8); Monocytes % (Auto) 12.6 % (0.0-7.3); Platelet Count 167 K/mm3 (140-440); Red Blood Count 4.27 M/mm3 (3.65-5.03); Red Cell Distribution Width 13.6 % (13.2-15.2)
[2018-07-22 05:34] LABS: BUN/Creatinine Ratio 14; Blood Urea Nitrogen 18 mg/dL (9-20); Calcium 9.2 mg/dL (8.4-10.2); Hemolysis Index 3
[2018-07-22] MEDS ORDERED: DECADRON IM ONE (05:36)
[2018-07-22] MEDS ORDERED: K-DUR PO ONE (05:36)
--- NOTE | 2018-07-22 05:40 | Emergency Department Report ---
ED General Adult HPI - General Chief complaint: Fever Stated complaint: EDDIE Source: patient Mode of arrival: Ambulatory Limitations: No Limitations - History of Present Illness Initial comments: This is a 63 year-old male who presents to the emergency room with chills and generalized itching. Patient states he ate some salmon and itching discomfort ever since. He woke up with symptoms yesterday morning. He started taking Benadryl and continued prescribed medication. Past medical history of congestive heart failure, diabetes, heart attack, and hypertension. He reports allergy to most seafood. He denies dyspnea, chest pain, shortness of breath, tonsillar swelling, drooling. Onset/Timin -: days(s) Location: upper extremity, lower extremity Severity scale (0 -10): 3 Quality: other (pruritus) Consistency: constant Improves with: none Worsens with: none Associated Symptoms: denies other symptoms Treatments Prior to Arrival: other (Benadryl) - Related Data Home Medications Medication Instructions Recorded Confirmed Last Taken Carvedilol [Coreg] 25 mg PO Q12HRT 10/12/12 05/04/18 05/02/18 Esomeprazole Magnesium [NexIUM] 40 mg PO QDAY 10/12/12 05/04/18 05/04/18 05:25 Furosemide [Lasix TAB] 80 mg PO DAILY 10/12/12 05/04/18 05/02/18 Trulicity 0.75 mg SQ 1XW 05/04/18 05/04/18 04/27/18 09:00 Xarelto 20 mg DAILY 05/04/18 05/04/18 05/02/18 metFORMIN 1,000 mg DAILY 05/04/18 05/04/18 05/04/18 05:33 Previous Rx's Medication Instructions Recorded Last Taken Type hydrOXYzine PAMOATE [Vistaril] 25 mg PO Q6HR PRN #15 capsule 07/22/18 Unknown Rx methylPREDNISolone [Medrol 4MG 4 mg PO DAILY #1 tab.ds.pk 07/22/18 Unknown Rx DOSEPAK (21 tabs)] Allergies Allergy/AdvReac Type Severity Reaction Status Date / Time shellfish derived Allergy Itching Verified 01/12/14 11:16 tomato [Tomato] Allergy Itching Verified 01/12/14 11:16 acetaminophen AdvReac Unknown Verified 01/12/14 11:16 [From Tylenol Cold Head Congestion] dextromethorphan HBr AdvReac Unknown Verified 01/12/14 11:16 [From Tylenol Cold Head Congestion] guaifenesin AdvReac Unknown Verified 01/12/14 11:16 [From Tylenol Cold Head Congestion] phenylephrine HCl AdvReac Unknown Verified 01/12/14 11:16 [From Tylenol Cold Head Congestion] ED Review of Systems ROS: Stated complaint: EDDIE Other details as noted in HPI Constitutional: chills. denies: fever ENT: denies: ear pain, throat pain Respiratory: denies: cough, shortness of breath, wheezing Cardiovascular: denies: chest pain, palpitations Gastrointestinal: denies: abdominal pain, nausea, diarrhea Skin: pruritus. denies: rash, lesions Neurological: denies: headache, weakness, paresthesias Psychiatric: denies: anxiety, depression ED Past Medical Hx - Past Medical History Previous Medical History?: Yes Hx Hypertension: Yes Hx Heart Attack/AMI: Yes Hx Congestive Heart Failure: Yes Hx Diabetes: Yes Hx Asthma: No Hx COPD: No Hx HIV: No Additional medical history: ATRIAL Fib, takes Xarelto - Surgical History Past Surgical History?: Yes Hx Appendectomy: Yes - Social History Smoking Status: Never Smoker Substance Use Type: None - Medications Home Medications: Home Medications Medication Instructions Recorded Confirmed Last Taken Type Carvedilol [Coreg] 25 mg PO Q12HRT 10/12/12 05/04/18 05/02/18 History Esomeprazole Magnesium [NexIUM] 40 mg PO QDAY 10/12/12 05/04/18 05/04/18 05:25 History Furosemide [Lasix TAB] 80 mg PO DAILY 10/12/12 05/04/18 05/02/18 History Trulicity 0.75 mg SQ 1XW 05/04/18 05/04/18 04/27/18 09:00 History Xarelto 20 mg DAILY 05/04/18 05/04/18 05/02/18 History metFORMIN 1,000 mg DAILY 05/04/18 05/04/18 05/04/18 05:33 History hydrOXYzine PAMOATE [Vistaril] 25 mg PO Q6HR PRN #15 capsule 07/22/18 Unknown Rx methylPREDNISolone [Medrol 4MG 4 mg PO DAILY #1 tab.ds.pk 07/22/18 Unknown Rx DOSEPAK (21 tabs)] ED Physical Exam - General Limitations: No Limitations General appearance: alert, in no apparent distress, obese - Respiratory Respiratory exam: Present: normal lung sounds bilaterally. Absent: respiratory distress - Cardiovascular Cardiovascular Exam: Present: regular rate, normal rhythm. Absent: systolic murmur, diastolic murmur, rubs, gallop - GI/Abdominal GI/Abdominal exam: Present: soft, normal bowel sounds. Absent: distended, t enderness, guarding, rebound, rigid - Neurological Exam Neurological exam: Present: alert, oriented X3, normal gait - Psychiatric Psychiatric exam: Present: normal affect, normal mood - Skin Skin exam: Present: warm, dry, intact, normal color. Absent: rash ED Course Vital Signs 07/22/18 03:43 Temperature 97.8 F Pulse Rate 48 L Respiratory 18 Rate Blood Pressure 139/95 O2 Sat by Pulse 100 Oximetry ED Medical Decision Making - Lab Data Result diagrams: 07/22/18 04:10 07/22/18 04:10 Lab Results 07/22/18 07/22/18 Range/Units 04:10 04:10 WBC 6.9 (4.5-11.0) K/mm3 RBC 4.27 (3.65-5.03) M/mm3 Hgb 12.2 (11.8-15.2) gm/dl Hct 36.7 (35.5-45.6) % MCV 86 (84-94) fl MCH 29 (28-32) pg MCHC 33 (32-34) % RDW 13.6 (13.2-15.2) % Plt Count 167 (140-440) K/mm3 Lymph % (Auto) 24.4 (13.4-35.0) % Rooks % (Auto) 12.6 H (0.0-7.3) % Eos % (Auto) 0.7 (0.0-4.3) % Baso % (Auto) 0.4 (0.0-1.8) % Lymph # 1.7 (1.2-5.4) K/mm3 Rooks # 0.9 H (0.0-0.8) K/mm3 Eos # 0.1 (0.0-0.4) K/mm3 Baso # 0.0 (0.0-0.1) K/mm3 Seg Neutrophils % 61.9 (40.0-70.0) % Seg Neutrophils # 4.3 (1.8-7.7) K/mm3 Sodium 140 (137-145) mmol/L Potassium 3.3 L (3.6-5.0) mmol/L Chloride 99.7 (98-107) mmol/L Carbon Dioxide 26 (22-30) mmol/L Anion Gap 18 mmol/L BUN 18 (9-20) mg/dL Creatinine 1.3 (0.8-1.5) mg/dL Estimated GFR > 60 ml/min BUN/Creatinine Ratio 14 % Glucose 153 H (75-100) mg/dL Calcium 9.2 (8.4-10.2) mg/dL - Medical Decision Making Patient was examined by me. Vitals are normal and patient is in no acute distress. Obtained labs. Hypokalemia, given Klor-Con 40 mEq by mouth. All other labs are unremarkable. Patient given dexamethasone 8 mg IM once while in ER. Patient reports pruritus resolved and feels better. Patient will be treated for allergic reaction to fish. Start Medrol Dosepak and Vistaril. Plan discussed with patient to discharge home and treat outpatient. He agrees with ER plan. Patient discharged home in stable condition. Follow up with PCP in 2-3 days. Critical care attestation.: If time is entered above; I have spent that time in minutes in the direct care of this critically ill patient, excluding procedure time. ED Disposition Clinical Impression: Pruritus, Allergic reaction to fish Disposition: DC-01 TO HOME OR SELFCARE Is pt being admited?: No Does the pt Need Aspirin: No Condition: Stable Instructions: Allergies (ED), Food Allergy (ED) Additional Instructions: Return to the emergency room if difficulty breathing, chest pain, shortness of breath. Prescriptions: methylPREDNISolone [Medrol 4MG DOSEPAK (21 tabs)] 4 mg PO DAILY #1 tab.ds.pk hydrOXYzine PAMOATE [Vistaril] 25 mg PO Q6HR PRN #15 capsule PRN Reason: Itching Referrals: PRINCE HENDERSON MD [Primary Care Provider] - 3-5 Days PIYUSH HERZOG MD [Staff Physician] - 3-5 Days [facility] [Provider Group] - 3-5 Days Time of Disposition: 06:46
[2018-07-22 07:43] VITALS: BP 136/89
== END 2018-07-22 07:45 | disposition home or self-care (01) ==
LOC: ED 03:29
DX: T78.40XA Allergy, unspecified, initial encounter (principal); L29.9 Pruritus, unspecified; I11.0 Hypertensive heart disease with heart failure; I50.9 Heart failure, unspecified; I25.2 Old myocardial infarction; E11.9 Type 2 diabetes mellitus without complications; I48.91 Unspecified atrial fibrillation; Z90.49 Acquired absence of other specified parts of digestive tract; Z79.899 Other long term (current) drug therapy; Y92.89 Other specified places as the place of occurrence of the external cause
CPT/HCPCS: 36415; 80048; 85025; 96372; 99283; J1100

== ENCOUNTER 2018-07-27 01:05 | Emergency (ER) | payer MEDICARE ==
[2018-07-27 04:26] VITALS: BP 153/89
--- NOTE | 2018-07-27 04:34 | Emergency Department Report ---
ED General Adult HPI - General Chief complaint: Anxiety Stated complaint: SHAKING W/POSS REACTION Time Seen by Provider: 07/27/18 04:04 Source: patient Mode of arrival: Ambulatory Limitations: No Limitations - History of Present Illness Initial comments: 63-year-old male with a reported history of anxiety since emerge department complaining of continued anxiety. He saw his primary provider to help assist with anxiety and was started on hydroxyzine always she just started a few days ago and and complains of the medication resolved. The anxiety. He denies any suicidal or homicidal ideation. He reports no auditory or visual hallucinations. No moments of rage. Reports that there are various anxiety triggers and this causedhim to feel like his heart is racing sometimes feels like the bond are closing in and fit and very jittery. Reports no shortness of breath or dizziness. No fevers, chills, sweats, hemoptysis, hematemesis, hematochezia, abdominal pain or dysuria. He is having a general anxiety symptom with no new findings per patient does request medication to help calm him down -: Gradual Radiation: non-radiation Severity scale (0 -10): 0 Consistency: constant Improves with: none Worsens with: none Associated Symptoms: denies: cough, diaphoresis, loss of appetite, malaise, nausea/vomiting, shortness of breath, syncope, weakness - Related Data Home Medications Medication Instructions Recorded Confirmed Last Taken Carvedilol [Coreg] 25 mg PO Q12HRT 10/12/12 05/04/18 05/02/18 Esomeprazole Magnesium [NexIUM] 40 mg PO QDAY 10/12/12 05/04/18 05/04/18 05:25 Furosemide [Lasix TAB] 80 mg PO DAILY 10/12/12 05/04/18 05/02/18 Trulicity 0.75 mg SQ 1XW 05/04/18 05/04/18 04/27/18 09:00 Xarelto 20 mg DAILY 05/04/18 05/04/18 05/02/18 metFORMIN 1,000 mg DAILY 05/04/18 05/04/18 05/04/18 05:33 Previous Rx's Medication Instructions Recorded Last Taken Type hydrOXYzine PAMOATE [Vistaril] 25 mg PO Q6HR PRN #15 capsule 07/22/18 Unknown Rx methylPREDNISolone [Medrol 4MG 4 mg PO DAILY #1 tab.ds.pk 07/22/18 Unknown Rx DOSEPAK (21 tabs)] Betamethasone Dipro 0.05%(Nf) 1 applicatio TP BID #1 tube 07/27/18 Unknown Rx [Diprosone 0.05% Oint] Desloratadine [Clarinex] 5 mg PO DAILY #14 tablet 07/27/18 Unknown Rx hydrOXYzine HCL [Atarax] 25 mg PO Q6HR PRN #20 tablet 07/27/18 Unknown Rx predniSONE [Deltasone] 50 mg PO QDAY #5 tab 07/27/18 Unknown Rx Allergies Allergy/AdvReac Type Severity Reaction Status Date / Time shellfish derived Allergy Itching Verified 01/12/14 11:16 tomato [Tomato] Allergy Itching Verified 01/12/14 11:16 acetaminophen AdvReac Unknown Verified 01/12/14 11:16 [From Tylenol Cold Head Congestion] dextromethorphan HBr AdvReac Unknown Verified 01/12/14 11:16 [From Tylenol Cold Head Congestion] guaifenesin AdvReac Unknown Verified 01/12/14 11:16 [From Tylenol Cold Head Congestion] phenylephrine HCl AdvReac Unknown Verified 01/12/14 11:16 [From Tylenol Cold Head Congestion] ED Review of Systems ROS: Stated complaint: SHAKING W/POSS REACTION Other details as noted in HPI Constitutional: denies: chills, fever Eyes: denies: eye pain, eye discharge, vision change ENT: denies: ear pain, throat pain Respiratory: denies: cough, shortness of breath, wheezing Cardiovascular: denies: chest pain, palpitations Endocrine: no symptoms reported Gastrointestinal: denies: abdominal pain, nausea, diarrhea Genitourinary: denies: urgency, dysuria Musculoskeletal: denies: back pain, joint swelling, arthralgia Skin: denies: rash, lesions Neurological: denies: headache, weakness, paresthesias Psychiatric: anxiety. denies: depression, auditory hallucinations, visual hallucinations, suicidal thoughts Hematological/Lymphatic: denies: easy bleeding, easy bruising ED Past Medical Hx - Past Medical History Hx Hypertension: Yes Hx Heart Attack/AMI: Yes Hx Congestive Heart Failure: Yes Hx Diabetes: Yes Hx Asthma: No Hx COPD: No Hx HIV: No Additional medical history: ATRIAL Fib, takes Xarelto - Surgical History Hx Appendectomy: Yes - Social History Smoking Status: Never Smoker Substance Use Type: None - Medications Home Medications: Home Medications Medication Instructions Recorded Confirmed Last Taken Type Carvedilol [Coreg] 25 mg PO Q12HRT 10/12/12 05/04/18 05/02/18 History Esomeprazole Magnesium [NexIUM] 40 mg PO QDAY 10/12/12 05/04/18 05/04/18 05:25 History Furosemide [Lasix TAB] 80 mg PO DAILY 10/12/12 05/04/18 05/02/18 History Trulicity 0.75 mg SQ 1XW 05/04/18 05/04/18 04/27/18 09:00 History Xarelto 20 mg DAILY 05/04/18 05/04/18 05/02/18 History metFORMIN 1,000 mg DAILY 05/04/18 05/04/18 05/04/18 05:33 History hydrOXYzine PAMOATE [Vistaril] 25 mg PO Q6HR PRN #15 capsule 07/22/18 Unknown Rx methylPREDNISolone [Medrol 4MG 4 mg PO DAILY #1 tab.ds.pk 07/22/18 Unknown Rx DOSEPAK (21 tabs)] Betamethasone Dipro 0.05%(Nf) 1 applicatio TP BID #1 tube 07/27/18 Unknown Rx [Diprosone 0.05% Oint] Desloratadine [Clarinex] 5 mg PO DAILY #14 tablet 07/27/18 Unknown Rx hydrOXYzine HCL [Atarax] 25 mg PO Q6HR PRN #20 tablet 07/27/18 Unknown Rx predniSONE [Deltasone] 50 mg PO QDAY #5 tab 07/27/18 Unknown Rx ED Physical Exam - General Limitations: No Limitations General appearance: alert, in no apparent distress - Head Head exam: Present: atraumatic, normocephalic - Eye Eye exam: Present: normal appearance - ENT ENT exam: Present: mucous membranes moist - Neck Neck exam: Present: normal inspection - Respiratory Respiratory exam: Present: normal lung sounds bilaterally. Absent: respiratory distress - Cardiovascular Cardiovascular Exam: Present: regular rate, normal rhythm. Absent: systolic murmur, diastolic murmur, rubs, gallop - GI/Abdominal GI/Abdominal exam: Present: soft, normal bowel sounds - Rectal Rectal exam: Present: deferred - Extremities Exam Extremities exam: Present: normal inspection - Back Exam Back exam: Present: normal inspection - Neurological Exam Neurological exam: Present: alert, oriented X3, CN II-XII intact, normal gait - Psychiatric Psychiatric exam: Present: normal affect, normal mood, anxious - Skin Skin exam: Present: warm, dry, intact, normal color. Absent: rash ED Course Vital Signs 07/27/18 07/27/18 07/27/18 01:33 04:23 05:23 Temperature 98.0 F 98.1 F Pulse Rate 51 L 56 L 55 L Respiratory 18 20 17 Rate Blood Pressure 173/85 Blood Pressure 153/89 [Right] O2 Sat by Pulse 99 100 98 Oximetry ED Medical Decision Making - Medical Decision Making History of male with active anxiety, currently undergoing treatment is needed at time 2 mitigate his current anxiety level. His symptoms are not escalating. He does appear to have sound judgment and control here. He is in no pain. No danger no danger. I discussed with him the medication effects and timeline and advised him EVEN counseling to help him with some exercises to help avert the situation is like today, which landed him in the emergency department. Critical care attestation.: If time is entered above; I have spent that time in minutes in the direct care of this critically ill patient, excluding procedure time. ED Disposition Clinical Impression: Medication reaction Disposition: DC-01 TO HOME OR SELFCARE Is pt being admited?: No Does the pt Need Aspirin: No Condition: Stable Instructions: Benzoyl Peroxide (On the skin), Urticaria (ED), Antibiotic Medication Allergy (ED), Allergies (ED) Prescriptions: hydrOXYzine HCL [Atarax] 25 mg PO Q6HR PRN #20 tablet PRN Reason: Itching Desloratadine [Clarinex] 5 mg PO DAILY #14 tablet predniSONE [Deltasone] 50 mg PO QDAY #5 tab Betamethasone Dipro 0.05%(Nf) [Diprosone 0.05% Oint] 1 applicatio TP BID #1 tube Referrals: PRIMARY CARE, [Primary Care Provider] - 3-5 Days [facility] [Provider Group] - 3-5 Days
== END 2018-07-27 04:43 | disposition home or self-care (01) ==
LOC: ED 01:05
DX: T43.595A Adverse effect of other antipsychotics and neuroleptics, initial encounter (principal); F41.9 Anxiety disorder, unspecified; Y92.89 Other specified places as the place of occurrence of the external cause
CPT/HCPCS: 99282

== ENCOUNTER 2018-08-24 08:51 | Emergency (ER) | payer MEDICARE ==
[2018-08-24 09:11] VITALS: BP 147/88
--- NOTE | 2018-08-24 11:09 | Emergency Department Report ---
ED General Adult HPI - General Chief complaint: Pain General Stated complaint: SHAKING Time Seen by Provider: 08/24/18 10:37 Source: patient Mode of arrival: Ambulatory Limitations: No Limitations - History of Present Illness Initial comments: Patient presents to the emergency department with a chief complaint of anxiety and tremors. Patient states yesterday she was started on gabapentin by his physician at [place] for pain/burning sensation from his diabetes and for his anxiety. Patient states is more in his IV was worse so he took half a tablet of anxiety medicine that his friend had which increased his sensation of jitteriness. Patient denies chest pain, sore throat, headache, weakness, facial droop, slurred speech. -: Sudden Severity scale (0 -10): 0 Consistency: now resolved Improves with: none Associated Symptoms: denies other symptoms Treatments Prior to Arrival: none - Related Data Home Medications Medication Instructions Recorded Confirmed Last Taken Carvedilol [Coreg] 25 mg PO Q12HRT 10/12/12 05/04/18 05/02/18 Esomeprazole Magnesium [NexIUM] 40 mg PO QDAY 10/12/12 05/04/18 05/04/18 05:25 Furosemide [Lasix TAB] 80 mg PO DAILY 10/12/12 05/04/18 05/02/18 Trulicity 0.75 mg SQ 1XW 05/04/18 05/04/18 04/27/18 09:00 Xarelto 20 mg DAILY 05/04/18 05/04/18 05/02/18 metFORMIN 1,000 mg DAILY 05/04/18 05/04/18 05/04/18 05:33 Previous Rx's Medication Instructions Recorded Last Taken Type hydrOXYzine PAMOATE [Vistaril] 25 mg PO Q6HR PRN #15 capsule 07/22/18 Unknown Rx methylPREDNISolone [Medrol 4MG 4 mg PO DAILY #1 tab.ds.pk 07/22/18 Unknown Rx DOSEPAK (21 tabs)] Betamethasone Dipro 0.05%(Nf) 1 applicatio TP BID #1 tube 07/27/18 Unknown Rx [Diprosone 0.05% Oint] Desloratadine [Clarinex] 5 mg PO DAILY #14 tablet 07/27/18 Unknown Rx hydrOXYzine HCL [Atarax] 25 mg PO Q6HR PRN #20 tablet 07/27/18 Unknown Rx predniSONE [Deltasone] 50 mg PO QDAY #5 tab 07/27/18 Unknown Rx Allergies Allergy/AdvReac Type Severity Reaction Status Date / Time shellfish derived Allergy Itching Verified 01/12/14 11:16 tomato [Tomato] Allergy Itching Verified 01/12/14 11:16 acetaminophen AdvReac Unknown Verified 01/12/14 11:16 [From Tylenol Cold Head Congestion] dextromethorphan HBr AdvReac Unknown Verified 01/12/14 11:16 [From Tylenol Cold Head Congestion] guaifenesin AdvReac Unknown Verified 01/12/14 11:16 [From Tylenol Cold Head Congestion] phenylephrine HCl AdvReac Unknown Verified 01/12/14 11:16 [From Tylenol Cold Head Congestion] ED Review of Systems ROS: Stated complaint: SHAKING Other details as noted in HPI Comment: All other systems reviewed and negative Constitutional: denies: chills, fever Eyes: denies: eye pain, eye discharge, vision change ENT: denies: ear pain, throat pain Respiratory: denies: cough, shortness of breath, wheezing Cardiovascular: denies: chest pain, palpitations Endocrine: no symptoms reported Gastrointestinal: denies: abdominal pain, nausea, diarrhea Genitourinary: denies: urgency, dysuria Musculoskeletal: denies: back pain, joint swelling, arthralgia Skin: denies: rash, lesions Neurological: denies: headache, weakness, paresthesias Psychiatric: denies: anxiety, depression Hematological/Lymphatic: denies: easy bleeding, easy bruising ED Past Medical Hx - Past Medical History Previous Medical History?: Yes Hx Hypertension: Yes Hx Heart Attack/AMI: Yes Hx Congestive Heart Failure: Yes Hx Diabetes: Yes Hx Asthma: No Hx COPD: No Hx HIV: No Additional medical history: ATRIAL Fib, takes Xarelto - Surgical History Past Surgical History?: Yes Hx Appendectomy: Yes - Social History Smoking Status: Former Smoker Substance Use Type: None - Medications Home Medications: Home Medications Medication Instructions Recorded Confirmed Last Taken Type Carvedilol [Coreg] 25 mg PO Q12HRT 10/12/12 05/04/18 05/02/18 History Esomeprazole Magnesium [NexIUM] 40 mg PO QDAY 10/12/12 05/04/18 05/04/18 05:25 History Furosemide [Lasix TAB] 80 mg PO DAILY 10/12/12 05/04/18 05/02/18 History Trulicity 0.75 mg SQ 1XW 05/04/18 05/04/18 04/27/18 09:00 History Xarelto 20 mg DAILY 05/04/18 05/04/18 05/02/18 History metFORMIN 1,000 mg DAILY 05/04/18 05/04/18 05/04/18 05:33 History hydrOXYzine PAMOATE [Vistaril] 25 mg PO Q6HR PRN #15 capsule 07/22/18 Unknown Rx methylPREDNISolone [Medrol 4MG 4 mg PO DAILY #1 tab.ds.pk 07/22/18 Unknown Rx DOSEPAK (21 tabs)] Betamethasone Dipro 0.05%(Nf) 1 applicatio TP BID #1 tube 07/27/18 Unknown Rx [Diprosone 0.05% Oint] Desloratadine [Clarinex] 5 mg PO DAILY #14 tablet 07/27/18 Unknown Rx hydrOXYzine HCL [Atarax] 25 mg PO Q6HR PRN #20 tablet 07/27/18 Unknown Rx predniSONE [Deltasone] 50 mg PO QDAY #5 tab 07/27/18 Unknown Rx ED Physical Exam - General Limitations: No Limitations General appearance: alert, in no apparent distress - Head Head exam: Present: atraumatic, normocephalic - Eye Eye exam: Present: normal appearance - ENT ENT exam: Present: mucous membranes moist - Neck Neck exam: Present: normal inspection - Respiratory Respiratory exam: Present: normal lung sounds bilaterally. Absent: respiratory distress - Cardiovascular Cardiovascular Exam: Present: regular rate, normal rhythm. Absent: systolic murmur, diastolic murmur, rubs, gallop - GI/Abdominal GI/Abdominal exam: Present: soft, normal bowel sounds. Absent: distended, tenderness - Rectal Rectal exam: Present: deferred - Extremities Exam Extremities exam: Present: normal inspection - Back Exam Back exam: Present: normal inspection - Neurological Exam Neurological exam: Present: alert, oriented X3, CN II-XII intact. Absent: motor sensory deficit - Psychiatric Psychiatric exam: Present: normal affect, normal mood - Skin Skin exam: Present: warm, dry, intact, normal color. Absent: rash ED Course Vital Signs 08/24/18 09:09 Temperature 98.3 F Pulse Rate 72 Respiratory 20 Rate Blood Pressure 147/88 O2 Sat by Pulse 100 Oximetry ED Medical Decision Making - Medical Decision Making Patient instructed not to take medications from other people Also discussed the patient agreed to follow up with his primary care physician Cyndi for further treatment of his anxiety Critical care attestation.: If time is entered above; I have spent that time in minutes in the direct care of this critically ill patient, excluding procedure time. ED Disposition Clinical Impression: Misuse of prescription only drugs Disposition: TO HOME OR SELFCARE Is pt being admited?: No Does the pt Need Aspirin: No Condition: Stable Additional Instructions: return if worse Referrals: PRINCE HENDERSON MD [Primary Care Provider] - 3-5 Days [facility] [Provider Group] - 3-5 Days [facility] [Provider Group] - 3-5 Days Time of Disposition: 11:08
== END 2018-08-24 11:22 | disposition home or self-care (01) ==
LOC: ED 08:51
DX: F19.10 Other psychoactive substance abuse, uncomplicated (principal); F41.9 Anxiety disorder, unspecified; I11.0 Hypertensive heart disease with heart failure; I50.9 Heart failure, unspecified; I25.2 Old myocardial infarction; I48.91 Unspecified atrial fibrillation; Z90.49 Acquired absence of other specified parts of digestive tract; Z79.899 Other long term (current) drug therapy; Z91.013 Allergy to seafood; Z91.018 Allergy to other foods; Z88.1 Allergy status to other antibiotic agents; Z88.6 Allergy status to analgesic agent
CPT/HCPCS: 82962